=== PATIENT | male | born 1980 | race Hispanic/Latino ===

== ENCOUNTER 2016-12-23 12:51 | Emergency (ER) | payer OTHER, SELFPAY ==
[2016-12-23 13:58] LABS: #Eosinphils 0.1 thou/uL (0.0-0.7); #Lymphocytes 0.5 thou/uL (1.20-3.40); #Monocytes 0.4 thou/uL (0.11-0.59); #Neutrophils 6.2 thou/uL (1.40-6.50); %Basophils 0.2 % (0.0-1.0); %Eosinophils 1.4 % (0.0-10.0); %Lymphocytes 6.9 % (21.0-51.0); %Monocytes 5.8 % (0.0-10.0); %Neutrophils 85.6 % (42.0-75.0); Hemoglobin 14.9 g/dL (14.0-18.0); Mean Corpuscular HGB CONC 35.6 g/dL (32.0-36.0); Mean Corpuscular Hemoglobin 32.3 pg (27.0-31.0); Mean Corpuscular Volume 90.7 fl (80.0-94.0); Mean Platelet Volume 6.3 fL (7.4-10.4); Platelet Count 240 thou/uL (130-400); RBC Distribution Width 11.9 % (11.5-14.5); Red Blood Cell (RBC) Count 4.63 mill/uL (4.70-6.10); White Blood Cell (WBC) Count 7.3 thou/uL (4.8-10.8)
[2016-12-23 14:06] LABS: ALT (SGPT) 81 U/L (0-55); AST (SGOT) 51 U/L (5-34); Alkaline Phosphatase 66 U/L (40-150); Amylase 79 U/L (25-125); Anion Gap 12 mmol/L (10-20); BUN (Urea Nitrogen) 11 mg/dL (8.9-20.6); Bilirubin, Total 0.4 mg/dL (0.2-1.2); Calc. Creatinine Clearance 0 mL/min (70-130); Calcium 8.9 mg/dL (7.8-10.44); Carbon Dioxide 26 mmol/L (22-29); Chloride 103 mmol/L (98-107); Estimated GFR-MDRD Greater than 90; Globulin 2.9 g/dL (2.4-3.5); Glucose 99 mg/dL (70-105); Lipase 9 U/L (8-78); Potassium 4.2 mmol/L (3.5-5.1); Protein, Total 6.9 g/dL (6.0-8.3); Sodium 137 mmol/L (136-145)
[2016-12-23 14:10] LABS: CKMB 1.5 ng/mL (0-6.6); Troponin I Less than 0.010 ng/mL (< 0.028)
--- NOTE | 2016-12-23 14:11 | CT ---
CT OF THE ABDOMEN AND PELVIS: Date: 12/23/16 COMPARISON: 06/19/14. HISTORY: Left upper quadrant pain, abdominal pain, vomiting, and diarrhea. History of diverticulitis. TECHNIQUE: Serial axial CT imaging at 5 mm intervals from lung bases to pubic symphysis with IV contrast. Coron al reformatted imaging obtained. FINDINGS: Imaged lung bases are unremarkable. No free intraperitoneal air. Lack of oral contrast limits assessment of the bowel. Liver, gallbladder, spleen, pancreas, adrenal glands, and kidneys are unremarkable. There is no evidence of bowel inflammatory change or bowel obs truction. The appendix appears grossly unremarkable. Vascular structures appear patent. No lymphadenopathy is seen within the pelvis, retroperitoneum, or the mesentery. There is a unilateral L5 pars defect on the left and abnormal sclerosis in the region of the pars in terarticular at L5 on the right. No acute osseous abnormality. IMPRESSION: No acute findings. POS: [facility]
[2016-12-23 14:16] LABS: Bilirubin Negative (Negative); Blood, Urine Negative (Negative); Clarity Clear (Clear); Glucose, Urine (Dipstick) Negative (Negative); Leukocyte Negative (Negative); Nitrite Negative (Negative); Protein, Urine (Dipstick) Negative (Neg-Trace); Specific Gravity, Urine 1.015 (1.005-1.030); Urobilinogen 0.2 mg/dL (0.2-1.0)
--- NOTE | 2016-12-23 14:31 | RAD ---
TWO VIEWS CHEST: Date: 12-23-16 Comparison: None. History: Nausea and vomiting. FINDINGS: Vertically oriented linear density noted in the medial right lung apex, likely on the basis of an az ygos lobe and fissure. No pneumothorax is noted. There is no focal consolidation or alveolar edema. No acute osseous abnormality. IMPRESSION: No acute findings. POS: [facility]
== END 2016-12-23 15:32 | disposition home or self-care (01) ==
LOC: NAV ERS 12:51
DX: S29.011A Strain of muscle and tendon of front wall of thorax, initial encounter (principal); K52.9 Noninfective gastroenteritis and colitis, unspecified; H66.91 Otitis media, unspecified, right ear; X58.XXXA Exposure to other specified factors, initial encounter
CPT/HCPCS: 36415; 71020; 74177; 80053; 81003; 82150; 82553; 83690; 84484; 85025; 93005

== ENCOUNTER 2017-06-13 21:39 | Emergency (ER) | payer SELFPAY ==
[2017-06-13] MEDS ORDERED: Ondansetron ODT 4 MG TAB ONE ×2 (21:59)
[2017-06-13] MEDS ORDERED: Fentanyl 100 MCG/2 ML VIAL ONE (22:05)
== END 2017-06-13 22:33 | disposition home or self-care (01) ==
LOC: NAV ERS 21:39
DX: K08.89 Other specified disorders of teeth and supporting structures (principal); E11.65 Type 2 diabetes mellitus with hyperglycemia; Z79.899 Other long term (current) drug therapy
CPT/HCPCS: 96372; J3010; Q0162

== ENCOUNTER 2017-06-22 06:29 | Emergency (ER) | payer SELFPAY ==
[2017-06-22] MEDS ORDERED: Morphine Sulfate 2 MG/ML SYRINGE ONE (07:09)
[2017-06-22 07:33] LABS: #Eosinphils 0.2 thou/uL (0.0-0.7); #Lymphocytes 1.6 thou/uL (1.20-3.40); #Monocytes 0.6 thou/uL (0.11-0.59); #Neutrophils 2.9 thou/uL (1.40-6.50); %Basophils 0.7 % (0.0-1.0); %Eosinophils 4.7 % (0.0-10.0); %Lymphocytes 30.2 % (21.0-51.0); %Monocytes 10.5 % (0.0-10.0); %Neutrophils 53.9 % (42.0-75.0); Hemoglobin 13.8 g/dL (14.0-18.0); Mean Corpuscular HGB CONC 33.1 g/dL (32.0-36.0); Mean Corpuscular Hemoglobin 30.3 pg (27.0-31.0); Mean Corpuscular Volume 91.5 fl (80.0-94.0); Mean Platelet Volume 6.4 fL (7.4-10.4); Platelet Count 255 thou/uL (130-400); RBC Distribution Width 12.3 % (11.5-14.5); Red Blood Cell (RBC) Count 4.55 mill/uL (4.70-6.10); White Blood Cell (WBC) Count 5.3 thou/uL (4.8-10.8)
[2017-06-22 07:47] LABS: ALT (SGPT) 44 U/L (8-55); AST (SGOT) 19 U/L (5-34); Albumin 3.8 g/dL (3.5-5.0); Alkaline Phosphatase 65 U/L (40-150); Anion Gap 13 mmol/L (10-20); BUN (Urea Nitrogen) 16 mg/dL (8.9-20.6); Bilirubin, Total 0.3 mg/dL (0.2-1.2); Calc. Creatinine Clearance 0 mL/min (70-130); Calcium 8.9 mg/dL (7.8-10.44); Carbon Dioxide 24 mmol/L (22-29); Chloride 107 mmol/L (98-107); Estimated GFR-MDRD Greater than 90; Globulin 2.6 g/dL (2.4-3.5); Glucose 100 mg/dL (70-105); Protein, Total 6.4 g/dL (6.0-8.3); Sodium 140 mmol/L (136-145)
[2017-06-22] MEDS ORDERED: Iopamidol 370 76% 100 ML VIAL ONE (09:00)
[2017-06-22 09:44] LABS: Bilirubin Negative (Negative); Blood, Urine Negative (Negative); Clarity Clear (Clear); Glucose, Urine (Dipstick) Negative (Negative); Leukocyte Negative (Negative); Nitrite Negative (Negative); Protein, Urine (Dipstick) Negative (Neg-Trace); Urobilinogen 0.2 mg/dL (0.2-1.0)
--- NOTE | 2017-06-22 10:00 | CT ---
CT ABDOMEN WITH IV CONTRAST: CT PELVIS WITH IV CONTRAST: 06/22/2017 HISTORY: Left lower quadrant abdominal pain for three days. COMPARISON: 12/23/2016 FINDINGS: There is minimal dependent bibasilar atelectasis. The liver, spleen, pancreas, bilateral adrenal glands, kidneys, abdominal aorta, urinary bladder, an d opacified bowel demonstrate a normal CT appearance. The appendix is normal in caliber. There is no free fluid, fluid collection, or lymphadenopathy seen in the abdomen or pelvis. There is a unilateral left-sided pars defect with sclerosis in the region of the right pars interart icularis, suggesting a stress type reaction; however, again, this is a stable finding compared to th e prior study. CT abdomen and pelvis is stable from prior study. IMPRESSION: Stable CT scan of the abdomen and pelvis, and no acute findings are visualized. POS: [facility]
== END 2017-06-22 10:09 | disposition home or self-care (01) ==
LOC: NAV ERS 06:29 → EEVIPCON 06:29 → NAV ERS 10:09
DX: R10.32 Left lower quadrant pain (principal); E11.9 Type 2 diabetes mellitus without complications
CPT/HCPCS: 74177; 80053; 81003; 85025; 96361; 96374; J2270

== ENCOUNTER 2017-09-12 09:31 | Emergency (ER) | payer SELFPAY | END 2017-09-12 10:00 | disposition home or self-care (01) | LOC: NAV ERS 09:31 | DX: J20.9 Acute bronchitis, unspecified (principal); M62.830 Muscle spasm of back; E11.649 Type 2 diabetes mellitus with hypoglycemia without coma | CPT/HCPCS: 99283 ==

== ENCOUNTER 2018-07-10 21:32 | Emergency (ER) | payer SELFPAY ==
[2018-07-10] MEDS ORDERED: Ketorolac Tromethamine 60 MG/2 ML VIAL ONE (22:15)
== END 2018-07-10 22:35 | disposition home or self-care (01) ==
LOC: NAV ERS 21:32
DX: M75.42 Impingement syndrome of left shoulder (principal); G89.29 Other chronic pain; M54.5 Low back pain; E11.65 Type 2 diabetes mellitus with hyperglycemia; Z79.899 Other long term (current) drug therapy
CPT/HCPCS: 96372; J1885

== ENCOUNTER 2020-12-26 15:04 | Emergency (ER) | payer OTHER, SELFPAY ==
[2020-12-26] MEDS ORDERED: Boostrix 0.5 ML (Tdap) VIAL ONE (15:08)
[2020-12-26] MEDS ORDERED: Lidocaine 1% (PF) 30 ML VIAL ONE (15:44)
[2020-12-26] MEDS ORDERED: Bacitracin 1 PK ONE (16:46)
== END 2020-12-26 16:45 | disposition home or self-care (01) ==
LOC: NAV ERS 15:04
DX: S61.012A Laceration without foreign body of left thumb without damage to nail, initial encounter (principal); E11.9 Type 2 diabetes mellitus without complications; W45.8XXA Other foreign body or object entering through skin, initial encounter
CPT/HCPCS: 12001; 90471; 90715; J2001

== ENCOUNTER 2021-01-31 02:23 | Emergency (ER) | payer SELFPAY ==
[2021-01-31] MEDS ORDERED: Ketorolac Tromethamine 30 MG/ML VIAL ONE (03:01)
[2021-01-31] MEDS ORDERED: Acetaminophen 500 MG TAB ONE (03:01)
== END 2021-01-31 03:20 | disposition home or self-care (01) ==
LOC: NAV ERS 02:23
DX: S46.911A Strain of unspecified muscle, fascia and tendon at shoulder and upper arm level, right arm, initial encounter (principal); E11.9 Type 2 diabetes mellitus without complications; X58.XXXA Exposure to other specified factors, initial encounter
CPT/HCPCS: 96372; J1885

== ENCOUNTER 2021-04-19 08:14 | Emergency (ER) | payer SELFPAY ==
[2021-04-19 08:48] LABS: #Eosinphils 0.1 thou/uL (0.0-0.7); #Lymphocytes 1.1 thou/uL (1.20-3.40); #Monocytes 0.4 thou/uL (0.11-0.59); #Neutrophils 2.4 thou/uL (1.40-6.50); %Basophils 0.3 % (0.0-1.0); %Eosinophils 1.9 % (0.0-10.0); %Lymphocytes 26.2 % (21.0-51.0); %Monocytes 10.7 % (0.0-10.0); %Neutrophils 60.9 % (42.0-75.0); Hemoglobin 15.2 g/dL (14.0-18.0); Mean Corpuscular HGB CONC 32.4 g/dL (32.0-36.0); Mean Corpuscular Hemoglobin 30.3 pg (27.0-31.0); Mean Corpuscular Volume 93.5 fL (78.0-98.0); Platelet Count 206 thou/uL (130-400); RBC Distribution Width 11.3 % (11.5-14.5); Red Blood Cell (RBC) Count 5.03 mill/uL (4.70-6.10)
[2021-04-19] MEDS ORDERED: Sodium Chloride 0.9% 1,000 ML ONE (08:48)
[2021-04-19] MEDS ORDERED: Dicyclomine 20 MG TAB ONE (08:49)
[2021-04-19] MEDS ORDERED: Iopamidol 370 76% 100 ML VIAL ONE (09:00)
[2021-04-19 09:07] LABS: ALT (SGPT) 17 U/L (8-55); AST (SGOT) 17 U/L (5-34); Albumin 3.5 g/dL (3.5-5.0); Alkaline Phosphatase 76 U/L (40-110); Anion Gap 11 mmol/L (10-20); BUN (Urea Nitrogen) 13 mg/dL (8.9-20.6); Bilirubin, Total 0.2 mg/dL (0.2-1.2); Calc. Creatinine Clearance 0 mL/min (70-130); Carbon Dioxide 25 mmol/L (22-29); Chloride 103 mmol/L (98-107); Globulin 3.1 g/dL (2.4-3.5); Glucose 103 mg/dL (70-105); Potassium 4.6 mmol/L (3.5-5.1); Protein, Total 6.6 g/dL (6.0-8.3); Sodium 134 mmol/L (136-145)
[2021-04-19 09:28] LABS: Bilirubin Negative (Negative); Blood, Urine Negative (Negative); Clarity Clear (Clear); Glucose, Urine (Dipstick) Negative (Negative); Ketone, Urine Negative (Negative); Leukocyte Negative (Negative); Nitrite Negative (Negative); Protein, Urine (Dipstick) Negative (Neg-Trace); Specific Gravity, Urine 1.015 (1.005-1.030); Urobilinogen 0.2 mg/dL (Less than 2)
== END 2021-04-19 09:55 | disposition home or self-care (01) ==
LOC: NAV ERS 08:14
DX: K42.9 Umbilical hernia without obstruction or gangrene (principal); R91.8 Other nonspecific abnormal finding of lung field
CPT/HCPCS: 74177; 80053; 81003; 83605; 85025; J7050; Q9967

== ENCOUNTER 2021-08-09 17:44 | Emergency (ER) | payer SELFPAY | END 2021-08-09 18:24 | disposition home or self-care (01) | LOC: NAV ERS 17:44 | DX: K40.90 Unilateral inguinal hernia, without obstruction or gangrene, not specified as recurrent (principal) | CPT/HCPCS: 99283 ==

== ENCOUNTER 2021-09-09 07:55 | Emergency (ER) | payer SELFPAY ==
[2021-09-09 09:27] LABS: Bilirubin Negative (Negative); Blood, Urine Negative (Negative); Clarity Clear (Clear); Glucose, Urine (Dipstick) Negative (Negative); Ketone, Urine Negative (Negative); Leukocyte Negative (Negative); Nitrite Negative (Negative); Protein, Urine (Dipstick) Negative (Neg-Trace); Urobilinogen 0.2 mg/dL (Less than 2); pH, Urine 5.5 (5.0-9.0)
[2021-09-09] MEDS ORDERED: Sodium Chloride 0.9% 1,000 ML ONE (09:34)
[2021-09-09 09:40] LABS: #Basophils 0.1 thou/uL (0.0-0.2); #Eosinphils 0.3 thou/uL (0.0-0.7); #Lymphocytes 1.5 thou/uL (1.20-3.40); #Monocytes 0.5 thou/uL (0.11-0.59); #Neutrophils 1.6 thou/uL (1.40-6.50); %Basophils 1.4 % (0.0-1.0); %Eosinophils 7.8 % (0.0-10.0); %Lymphocytes 36.9 % (21.0-51.0); %Monocytes 13.5 % (0.0-10.0); %Neutrophils 40.3 % (42.0-75.0); Hemoglobin 14.7 g/dL (14.0-18.0); Mean Corpuscular HGB CONC 32.5 g/dL (32.0-36.0); Mean Corpuscular Hemoglobin 30.8 pg (27.0-31.0); Mean Corpuscular Volume 94.6 fL (78.0-98.0); Mean Platelet Volume 6.5 fL (7.4-10.4); Platelet Count 278 thou/uL (130-400); RBC Distribution Width 12.8 % (11.5-14.5); Red Blood Cell (RBC) Count 4.77 mill/uL (4.70-6.10)
[2021-09-09 09:53] LABS: ALT (SGPT) 57 U/L (8-55); AST (SGOT) 33 U/L (5-34); Albumin 3.8 g/dL (3.5-5.0); Alkaline Phosphatase 62 U/L (40-110); Anion Gap 10 mmol/L (10-20); BUN (Urea Nitrogen) 15 mg/dL (8.9-20.6); Bilirubin, Total 0.4 mg/dL (0.2-1.2); Calc. Creatinine Clearance 0 mL/min (70-130); Calcium 9.2 mg/dL (7.8-10.44); Carbon Dioxide 25 mmol/L (22-29); Chloride 106 mmol/L (98-107); Glucose 107 mg/dL (70-105); Lipase 21 U/L (8-78); Potassium 4.2 mmol/L (3.5-5.1); Protein, Total 6.8 g/dL (6.0-8.3); Sodium 137 mmol/L (136-145)
== END 2021-09-09 10:50 | disposition home or self-care (01) ==
LOC: NAV ERS 07:55
DX: K92.2 Gastrointestinal hemorrhage, unspecified (principal); K59.00 Constipation, unspecified
CPT/HCPCS: 74176; 80053; 81003; 83690; 84484; 85025; 85379; 93005; J7050

== ENCOUNTER 2022-03-12 16:05 | Emergency (ER) | payer SELFPAY ==
[~2022-03-12 16:05] MED LIST: Iopamidol 370 76% 100 ML VIAL ONE
[2022-03-12] MEDS ORDERED: Ketorolac Tromethamine 30 MG/ML VIAL ONE (16:45)
[2022-03-12] MEDS ORDERED: Ondansetron PF 4 MG/2 ML Vial ONE (16:45)
[2022-03-12 17:01] LABS: #Eosinphils 0.3 thou/uL (0.0-0.7); #Lymphocytes 1.8 thou/uL (1.20-3.40); #Monocytes 0.4 thou/uL (0.11-0.59); %Basophils 0.9 % (0.0-1.0); %Eosinophils 7.6 % (0.0-10.0); %Lymphocytes 39.2 % (21.0-51.0); %Monocytes 9.1 % (0.0-10.0); %Neutrophils 43.3 % (42.0-75.0); Hemoglobin 14.9 g/dL (14.0-18.0); Mean Corpuscular HGB CONC 31.7 g/dL (32.0-36.0); Mean Corpuscular Hemoglobin 30.4 pg (27.0-31.0); Mean Corpuscular Volume 96.1 fL (78.0-98.0); Mean Platelet Volume 6.8 fL (7.4-10.4); Platelet Count 265 thou/uL (130-400); RBC Distribution Width 12.1 % (11.5-14.5); Red Blood Cell (RBC) Count 4.91 mill/uL (4.70-6.10); White Blood Cell (WBC) Count 4.5 thou/uL (4.8-10.8)
[2022-03-12 17:03] LABS: ALT (SGPT) 35 U/L (8-55); AST (SGOT) 24 U/L (5-34); Albumin 4.1 g/dL (3.5-5.0); Alkaline Phosphatase 63 U/L (40-110); Anion Gap 16 mmol/L (10-20); BUN (Urea Nitrogen) 16 mg/dL (8.9-20.6); Bilirubin, Total 0.3 mg/dL (0.2-1.2); Calc. Creatinine Clearance 0 mL/min (70-130); Calcium 8.9 mg/dL (7.8-10.44); Carbon Dioxide 22 mmol/L (22-29); Chloride 104 mmol/L (98-107); Globulin 2.5 g/dL (2.4-3.5); Glucose 152 mg/dL (70-105); Lipase 18 U/L (8-78); Potassium 4.1 mmol/L (3.5-5.1); Protein, Total 6.6 g/dL (6.0-8.3); Sodium 138 mmol/L (136-145)
[2022-03-12 18:32] LABS: Bilirubin Negative (Negative); Blood, Urine Negative (Negative); Clarity Clear (Clear); Glucose, Urine (Dipstick) Negative (Negative); Ketone, Urine Negative (Negative); Leukocyte Negative (Negative); Nitrite Negative (Negative); Protein, Urine (Dipstick) Negative (Neg-Trace); Urobilinogen 0.2 mg/dL (Less than 2)
== END 2022-03-12 18:59 | disposition home or self-care (01) ==
LOC: NAV ERS 16:05
DX: R10.32 Left lower quadrant pain (principal); R73.9 Hyperglycemia, unspecified
CPT/HCPCS: 74177; 80053; 81003; 83690; 84484; 85025; 96374; 96375; J1885; J2405; Q9967

== ENCOUNTER 2022-12-23 17:23 | Emergency (ER) | payer SELFPAY ==
[2022-12-23] MEDS ORDERED: Sodium Chloride 0.9% 1,000 ML ONE (17:59)
[2022-12-23] MEDS ORDERED: Morphine 4 MG/ML VIAL ONE (17:59)
[2022-12-23 18:08] LABS: Bilirubin Negative (Negative); Blood, Urine Negative (Negative); Clarity Clear (Clear); Glucose, Urine (Dipstick) Negative (Negative); Ketone, Urine Negative (Negative); Leukocyte Negative (Negative); Nitrite Negative (Negative); Protein, Urine (Dipstick) Negative (Neg-Trace); Specific Gravity, Urine 1.025 (1.005-1.030); Urobilinogen 0.2 mg/dL (Less than 2)
[2022-12-23 18:19] LABS: ALT (SGPT) 58 U/L (8-55); AST (SGOT) 36 U/L (5-34); Albumin 3.9 g/dL (3.5-5.0); Alkaline Phosphatase 53 U/L (40-110); Anion Gap 13 mmol/L (10-20); BUN (Urea Nitrogen) 17 mg/dL (8.9-20.6); Bilirubin, Total 0.3 mg/dL (0.2-1.2); Calc. Creatinine Clearance 0 mL/min (70-130); Calcium 8.8 mg/dL (7.8-10.44); Carbon Dioxide 22 mmol/L (22-29); Chloride 107 mmol/L (98-107); Estimated GFR 79; Globulin 2.6 g/dL (2.4-3.5); Glucose 148 mg/dL (70-105); Lipase 19 U/L (8-78); Potassium 3.8 mmol/L (3.5-5.1); Protein, Total 6.5 g/dL (6.0-8.3); Sodium 138 mmol/L (136-145)
[2022-12-23 18:30] LABS: Hemoglobin 14.8 g/dL (14.0-18.0); Mean Corpuscular HGB CONC 33.5 g/dL (32.0-36.0); Mean Corpuscular Hemoglobin 30.6 pg (27.0-31.0); Mean Corpuscular Volume 91.6 fl (78.0-98.0); Mean Platelet Volume 6.7 fL (7.4-10.4); Platelet Count 242 10x3/uL (130-400); RBC Distribution Width 11.4 % (11.5-14.5); Red Blood Cell (RBC) Count 4.83 mill/uL (4.70-6.10); White Blood Cell (WBC) Count 3.5 10x3/uL (4.8-10.8)
[2022-12-23 18:31] LABS: MDiff Complete? YES; Manual Diff?? YES
[2022-12-23 18:33] LABS: Eosinophils 3 % (0-10); Lymphocytes 41 % (21-51); Monocytes 10 % (0-10); Neutrophil 41 % (42-75); Platelet Morphology Comment Appears Adequate; Reactive Lymphocytes 5 % (0-10)
== END 2022-12-23 19:37 | disposition home or self-care (01) ==
LOC: NAV ERS 17:23
DX: R10.32 Left lower quadrant pain (principal); Z87.19 Personal history of other diseases of the digestive system
CPT/HCPCS: 36415; 74177; 80053; 81003; 83690; 85025; 96374; J2270; J7050; Q9967